=== PATIENT | female | born 1965 | race African-American/Black ===

== ENCOUNTER 2020-04-21 08:51 | Outpatient (REF) | payer OTHER, SELFPAY ==
[2020-04-21 09:14] LABS: COVID-19 Test Negative (Negative)
== END 2020-04-21 08:52 | disposition home or self-care (01) ==
LOC: HO.EMPCOV 08:51
PROVIDERS: Visit Provider Internal Medicine
DX: Z20.822 Contact with and (suspected) exposure to COVID-19 (principal)
CPT/HCPCS: 36415; 87635; C9803